=== PATIENT | female | born 1995 | race Caucasian/White ===

== ENCOUNTER 2016-11-15 11:23 | Outpatient (CLI) | payer OTHER ==
[~2016-11-15] VITALS: Ht 167.6 cm; Wt 90.7 kg
[~2016-11-15 11:23] MED LIST: DORYX200 MG PO
[2016-11-15 11:40] VITALS: BP 156/81
[2016-11-15 11:55] VITALS: BP 129/67
[2016-11-15] MEDS ORDERED: URSODIOL500 MG PO (12:00)
[2016-11-15 12:21] VITALS: BP 130/76
[2016-11-15 12:36] VITALS: BP 129/74
[2016-11-15 12:45] LABS: EOSINOPHIL (%) 0.7 % (0-5); EOSINOPHIL COUNT 0.1 K/uL (0-0.3); HEMATOCRIT 32.5 % (36.0-46.0); IMMATURE GRANULOCYTE (%) 0.6 % (0.0-0.7); IMMATURE GRANULOCYTE COUNT 0.1 K/uL; LYMPHOCYTE COUNT 1.8 K/uL (1.0-2.8); MCH 24.9 PG (29.0-34.0); MCHC 31.4 G/DL (30.0-36.0); MCV 79.5 FL (83-99); MONOCYTE (%) 9.4 % (3-12); MONOCYTE COUNT 0.9 K/uL (0-0.8); NEUTROPHIL COUNT 6.6 K/uL (1.8-6.4); PLATELET COUNT 362 K/uL (156-360); RBC DIS.WIDTH-CV 14.3 % (11.8-14.6); RBC DIS.WIDTH-SD 40.6 % (39-53); RED BLOOD COUNT 4.09 M/uL (3.80-5.20); WHITE BLOOD COUNT 9.4 K/uL (4.1-10.2)
[2016-11-15 12:53] LABS: UR CREATININE CONCENTRATION 130.6 MG/DL
[2016-11-15 12:57] VITALS: BP 134/81
[2016-11-15 13:00] LABS: ALKALINE PHOSPHATASE 215 IU/L (3-129); ANION GAP 8 MEQ/L (2-14); CHLORIDE 106 MEQ/L (99-109); GFR ESTIMATE (CALCULATED) > 59 mL/min/; GLUCOSE 71 mg/dL (70-99); POTASSIUM 4.9 MEQ/L (3.7-5.4); SAMPLE HEMOLYSIS CHECK 0; SAMPLE ICTERIC CHECK 0; SAMPLE LIPEMIA CHECK 0; SODIUM 137 MEQ/L (136-147); TOTAL BILIRUBIN 0.3 MG/DL (0.0-1.0); UREA NITROGEN (BUN) 6 mg/dL (9-23)
[2016-11-15 13:17] VITALS: BP 133/74
== END 2016-11-15 14:00 | disposition home or self-care (01) ==
LOC: LDRP-OP 11:23 → 2WEST 11:24 → LDRP-OP 01-06 12:10
PROVIDERS: Nurse Practitioner
DX: O16.3 Unspecified maternal hypertension, third trimester (principal); O99.89 Other specified diseases and conditions complicating pregnancy, childbirth and the puerperium; Z3A.36 36 weeks gestation of pregnancy
CPT/HCPCS: 59025; 80053; 82570; 84156; 85025; G0378

== ENCOUNTER 2016-11-18 16:53 | Inpatient (IN) | payer OTHER ==
[~2016-11-18] VITALS: Ht 167.6 cm; Wt 90.7 kg
[2016-11-18] VITALS (10 sets, daily range): BP systolic 119–147; BP diastolic 65–90
[~2016-11-18 16:53] MED LIST changes: +URSODIOL500 MG PO
[2016-11-18 18:38] LABS: HEMATOCRIT 31.9 % (36.0-46.0); MCH 25.6 PG (29.0-34.0); MCV 79.9 FL (83-99); MEAN PLAT.VOLUME 11.5 uM^3 (9.5-12.4); PLATELET COUNT 331 K/uL (156-360); RBC DIS.WIDTH-CV 14.4 % (11.8-14.6); RBC DIS.WIDTH-SD 41.6 % (39-53); RED BLOOD COUNT 3.99 M/uL (3.80-5.20); WHITE BLOOD COUNT 8.5 K/uL (4.1-10.2)
[2016-11-18 18:44] LABS: EOSINOPHIL (%) 0.5 % (0-5); IMMATURE GRANULOCYTE (%) 0.2 % (0.0-0.7); LYMPHOCYTE COUNT 1.6 K/uL (1.0-2.8); MONOCYTE (%) 9.1 % (3-12); MONOCYTE COUNT 0.8 K/uL (0-0.8); NEUTROPHIL (%) 71.6 % (45-76); NEUTROPHIL COUNT 6.1 K/uL (1.8-6.4)
[2016-11-18 18:59] LABS: ANION GAP 8 MEQ/L (2-14); CHLORIDE 102 MEQ/L (99-109); POTASSIUM 4.5 MEQ/L (3.7-5.4); SAMPLE HEMOLYSIS CHECK 0; SAMPLE ICTERIC CHECK 0; SAMPLE LIPEMIA CHECK 0; SODIUM 133 MEQ/L (136-147); TOTAL BILIRUBIN 0.3 MG/DL (0.0-1.0)
[2016-11-18 19:05] LABS: DRSB INTERNAL CONTROL PASS; PROBE CHECK PASS; SPECIMEN PROCESSING CONTROL PASS
[2016-11-18 19:10] LABS: ALKALINE PHOSPHATASE 243 IU/L (3-129); GFR ESTIMATE (CALCULATED) > 59 mL/min/; GLUCOSE 86 mg/dL (70-99); UREA NITROGEN (BUN) 13 mg/dL (9-23)
[2016-11-19] VITALS (21 sets, daily range): BP systolic 119–160; BP diastolic 58–94
[2016-11-20] VITALS (36 sets, daily range): BP systolic 113–186; BP diastolic 57–104
[2016-11-20] MEDS ORDERED: IBUPROFEN800 MG PO (15:08)
[2016-11-20 18:33] LABS: EOSINOPHIL (%) 0.1 % (0-5); HEMATOCRIT 33.6 % (36.0-46.0); IMMATURE GRANULOCYTE (%) 0.3 % (0.0-0.7); LYMPHOCYTE COUNT 1.6 K/uL (1.0-2.8); MCH 25.5 PG (29.0-34.0); MCHC 31.8 G/DL (30.0-36.0); MEAN PLAT.VOLUME 11.9 uM^3 (9.5-12.4); MONOCYTE (%) 7.2 % (3-12); MONOCYTE COUNT 0.8 K/uL (0-0.8); NEUTROPHIL (%) 78.4 % (45-76); NEUTROPHIL COUNT 9.2 K/uL (1.8-6.4); PLATELET COUNT 291 K/uL (156-360); RBC DIS.WIDTH-CV 14.7 % (11.8-14.6); RBC DIS.WIDTH-SD 42.1 % (39-53); WHITE BLOOD COUNT 11.7 K/uL (4.1-10.2)
[2016-11-20 18:43] LABS: ANION GAP 9 MEQ/L (2-14); CHLORIDE 107 MEQ/L (99-109); POTASSIUM 3.9 MEQ/L (3.7-5.4); SAMPLE HEMOLYSIS CHECK 0; SAMPLE ICTERIC CHECK 0; SAMPLE LIPEMIA CHECK 0; SODIUM 139 MEQ/L (136-147)
[2016-11-20 18:47] LABS: TOTAL BILIRUBIN 0.4 MG/DL (0.0-1.0)
[2016-11-20 18:58] LABS: ALKALINE PHOSPHATASE 230 IU/L (3-129); GFR ESTIMATE (CALCULATED) > 59 mL/min/; GLUCOSE 123 mg/dL (70-99); UREA NITROGEN (BUN) 9 mg/dL (9-23)
[2016-11-21 03:11] VITALS: BP 136/71
[2016-11-21 07:46] VITALS: BP 137/93
[2016-11-21 14:52] VITALS: BP 120/73
[2016-11-21 22:34] VITALS: BP 141/91
== END 2016-11-22 14:00 | disposition home or self-care (01) | DRG 775 ==
LOC: LDRP-OP 16:53 → 2WEST 16:54 → LDRP-OP 23:39 → 2WEST 11-20 14:30 → LDRP-OP 01-06 16:10
PROVIDERS: Obstetrics & Gynecology
PROC: 3E0P7GC Introduction of Other Therapeutic Substance into Female Reproductive, Via Natural or Artificial Opening (ICD-10-PCS; 2016-11-18)
PROC: 10E0XZZ Delivery of Products of Conception, External Approach (ICD-10-PCS; principal; 2016-11-20)
PROC: 3E0S3BZ Introduction of Anesthetic Agent into Epidural Space, Percutaneous Approach (ICD-10-PCS; 2016-11-20)
DX: O26.62 Liver and biliary tract disorders in childbirth (principal); K83.1 Obstruction of bile duct; O70.0 First degree perineal laceration during delivery; Z37.0 Single live birth; Z3A.37 37 weeks gestation of pregnancy
CPT/HCPCS: 80053; 85025; 87081; 87653; C1755; G0378; J0595; J3010; J7120